=== PATIENT | male | born 1955 | race Caucasian/White ===

== ENCOUNTER 2016-09-07 14:06 | Inpatient (IN) ==
[2016-09-07] MEDS ORDERED: Aspirin 81 MG TAB.CHEW PO ONE (14:20)
[2016-09-07] MEDS ORDERED: 0.9 % Sodium Chloride 500 ML IVC ONE (14:20)
--- NOTE | 2016-09-07 14:27 | Emergency Department Note ---
Disposition Clinical Impression: Community acquired bacterial pneumonia, Acute alcoholic intoxication with delirium Altered mental status Qualifiers: Altered mental status type: delirium Qualified Code(s): R41.0 - Disorientation , unspecified Disposition: Admitted As Inpatient Forms: ED Satisfaction Letter Chest Pain HPI - General Chief Complaint: ED Chest Pain Stated Complaint: Chest Pain, ADAM Time Seen by Provider: 09/07/16 14:10 Source: patient Limitations: no limitations Vital Signs Reviewed: Yes Nursing Notes Reviewed: Yes - History of Present Illness HPI Narrative: Patient is a difficult historian he comes today with his coworkers for chest pain dizziness and confusion. His coworker [place] that [place] is here [place] working his complaint of chest pain today cough and altered mental status. He does have a known history of alcoholism and states he is drinking up to 12 beers today. The patient does not give direct answers states he is okay wants to go home and is obviously confused. Pt complaint: chest pain Severity scale (1-10): 6 - Related Data Home Medications Medication Instructions Recorded Confirmed No Known Home Drugs 09/07/16 09/07/16 Allergies Allergy/AdvReac Type Severity Reaction Status Date / Time Unable to Assess Allergy Unverified 09/07/16 15:33 All systems ED: reviewed and negative except as stated. Constitutional: Reports: weakness Cardiovascular: Reports: chest pain Respiratory: Reports: cough Chest Pain PMH - Past Medical History Medical history: Reports: no medical history Psychiatric history: Reports: no psych history - Social History Smoking Status: Current every day smoker Alcohol use: Reports: heavy Drug use: Reports: none Physical Exam - General Limitations: altered mental status General appearance: appears intoxicated - Head Head exam: atraumatic, normocephalic, normal inspection - Eye Eye exam: Present: normal appearance, PERRL, EOMI - ENT ENT exam: normal exam, normal oropharynx, mucous membranes moist - Neck Neck exam: Present: normal inspection, full ROM, trachea midline - Chest Chest inspection: Present: normal inspection, symmetric chest wall rise - Respiratory Respiratory exam: Present: wheezes (rhonchi). Absent: respiratory distress - Cardiovascular Cardiovascular exam: Present: tachycardia - Abdominal Exam Abdominal exam: Present: soft, Non-Tender. Absent: tenderness, distention, guarding, rebound, rigidity - Expanded Lower Extremity Exam Neurovascular/Tendon exam: Absent: motor deficit, sensory deficit, tendon deficit - Back Exam Back exam: Present: normal inspection, full ROM. Absent: tenderness - Neurological Exam Neurological exam: Present: alert. Absent: normal gait (ataxic) - Psychiatric Psychiatric exam: Present: other (confused) - Skin Skin exam: Present: warm, dry, intact, normal color Course Vital Signs Temperature 99.7 F H 09/07/16 14:16 Pulse Rate 132 09/07/16 14:16 Respiratory Rate 22 09/07/16 14:16 Blood Pressure 193/115 09/07/16 14:16 O2 Sat by Pulse Oximetry 89 09/07/16 14:16 Temperature 99.7 F H 09/07/16 14:16 Pulse Rate 137 09/07/16 15:31 Respiratory Rate 20 09/07/16 15:31 Blood Pressure 157/98 09/07/16 15:31 O2 Sat by Pulse Oximetry 98 09/07/16 15:31 Oxygen Delivery Oxygen Delivery Nasal Cannula Chest Pain - Differential Diagnosis Likely: stable angina, unstable angina pectoris, atypical chest pain, st elevation myocardial infraction, chest pain - Medical Records Medical records reviewed: Yes I reviewed the patient's medical records. - Lab Data Lab results reviewed: Yes I reviewed the patient's lab results. Result diagrams: 09/07/16 14:29 09/07/16 14:29 Lab Results 09/07/16 09/07/16 09/07/16 Range/Units 14:29 14:29 14:29 WBC 12.9 H (4.3-11.1) K/mcL RBC 5.41 (4.19-5.50) M/mcL Hgb 16.8 (12.9-16.9) g/dL Hct 48.4 (37.5-50.1) % MCV 89.5 (83.0-100.0) fL MCH 31.1 (28.0-33.3) pg MCHC 34.7 (31.6-35.5) g/dL RDW 12.9 (11.5-14.5) % Plt Count 226 (140-400) K/mcL MPV 9.5 (9.4-12.4) fL Immature Gran % 0.3 (0-4) % Seg Neutrophils % 80.1 % Lymphocytes % 11.6 % Monocytes % 6.4 % Eosinophils % 0.9 % Basophils % 0.7 % Neutrophils # 10.3 H (1.6-8.9) K/mcL Lymphocytes # 1.5 (0.6-4.6) K/mcL Monocytes # 0.8 (0.0-1.3) K/mcL Eosinophils # 0.1 (0.0-0.6) K/mcL Basophils # 0.1 (0.0-0.2) K/mcL PT 11.4 (9.4-12.1) Seconds INR 1.1 APTT 33.9 (26.0-36.0) Seconds D-Dimer 534 H (0-500) ng/mLFEU Sodium (136-145) mEq/L Potassium (3.5-4.5) mEq/L Chloride (98-109) mEq/L Carbon Dioxide (19-29) mEq/L BUN (8-26) mg/dL Creatinine (0.72-1.25) mg/dL Est GFR ( Amer) (> 60) Est GFR (Non-Af Amer) (> 60) BUN/Creatinine Ratio (6-26) Glucose (70-99) mg/dL Calculated Osmolality (280-300) Lactic Acid (0.5-2.2) mmol/L Calcium (8.6-10.8) mg/dL Magnesium (1.6-2.6) mg/dL Total Bilirubin (0.2-1.2) mg/dL Direct Bilirubin (0.0-0.5) mg/dL Indirect Bilirubin (0.0-1.2) mg/dL AST (5-34) Units/L ALT (0-55) Units/L Alkaline Phosphatase (38-126) Units/L Troponin I (0-0.03) ng/mL B-Natriuretic Peptide 24 (0-100) pg/mL Serum Total Protein (6.0-8.3) g/dL Albumin (3.5-5.0) g/dL Globulin (2.4-3.5) g/dL Albumin/Globulin Ratio (1.1-2.2) Urine Color (Yellow) Urine Clarity (Clear) Urine pH (5.0-8.0) pH Units Ur Specific [place] (1.010-1.025) Urine Protein (Neg-Trace) mg/dL Urine Glucose (UA) (Normal) mg/dL Urine Ketones (Negative) mg/dL Urine Blood (Negative) Urine Nitrite (Negative) Urine Bilirubin (Negative) Urine Urobilinogen (Normal) mg/dL Ur Leukocyte Esterase (Negative) Ur Culture Indicated? (NO) Urine Opiates Screen (Yvmxwg=692) ng/mL Ur Barbiturates Screen (Mwkonm=152) ng/mL Ur Phencyclidine Scrn (Cutoff=25) ng/mL Ur Amphetamines Screen (Vdzwmg=6985) ng/mL U Benzodiazepines Scrn (Olqdgw=755) ng/mL Urine Cocaine Screen (Cutoff= 300) ng/mL U Marijuana (THC) Screen (Cutoff = 50) ng/mL Ethyl Alcohol (0-10) mg/dL 09/07/16 09/07/16 09/07/16 Range/Units 14:29 14:29 14:56 WBC (4.3-11.1) K/mcL RBC (4.19-5.50) M/mcL Hgb (12.9-16.9) g/dL Hct (37.5-50.1) % MCV (83.0-100.0) fL MCH (28.0-33.3) pg MCHC (31.6-35.5) g/dL RDW (11.5-14.5) % Plt Count (140-400) K/mcL MPV (9.4-12.4) fL Immature Gran % (0-4) % Seg Neutrophils % % Lymphocytes % % Monocytes % % Eosinophils % % Basophils % % Neutrophils # (1.6-8.9) K/mcL Lymphocytes # (0.6-4.6) K/mcL Monocytes # (0.0-1.3) K/mcL Eosinophils # (0.0-0.6) K/mcL Basophils # (0.0-0.2) K/mcL PT (9.4-12.1) Seconds INR APTT (26.0-36.0) Seconds D-Dimer (0-500) ng/mLFEU Sodium 141 (136-145) mEq/L Potassium 4.0 (3.5-4.5) mEq/L Chloride 102 (98-109) mEq/L Carbon Dioxide 28 (19-29) mEq/L BUN 7 L (8-26) mg/dL Creatinine 0.71 L (0.72-1.25) mg/dL Est GFR ( Amer) > 60 (> 60) Est GFR (Non-Af Amer) > 60 (> 60) BUN/Creatinine Ratio 10 (6-26) Glucose 107 H (70-99) mg/dL Calculated Osmolality 290 (280-300) Lactic Acid (0.5-2.2) mmol/L Calcium 8.9 (8.6-10.8) mg/dL Magnesium 1.9 (1.6-2.6) mg/dL Total Bilirubin 0.4 (0.2-1.2) mg/dL Direct Bilirubin 0.2 (0.0-0.5) mg/dL Indirect Bilirubin 0.2 (0.0-1.2) mg/dL AST 94 H (5-34) Units/L ALT 138 H (0-55) Units/L Alkaline Phosphatase 77 (38-126) Units/L Troponin I 0.00 (0-0.03) ng/mL B-Natriuretic Peptide (0-100) pg/mL Serum Total Protein 9.4 H (6.0-8.3) g/dL Albumin 4.0 (3.5-5.0) g/dL Globulin 5.4 H (2.4-3.5) g/dL Albumin/Globulin Ratio 0.7 L (1.1-2.2) Urine Color (Yellow) Urine Clarity (Clear) Urine pH (5.0-8.0) pH Units Ur Specific [place] (1.010-1.025) Urine Protein (Neg-Trace) mg/dL Urine Glucose (UA) (Normal) mg/dL Urine Ketones (Negative) mg/dL Urine Blood (Negative) Urine Nitrite (Negative) Urine Bilirubin (Negative) Urine Urobilinogen (Normal) mg/dL Ur Leukocyte Esterase (Negative) Ur Culture Indicated? (NO) Urine Opiates Screen (Rffwfh=974) ng/mL Ur Barbiturates Screen (Wytxch=529) ng/mL Ur Phencyclidine Scrn (Cutoff=25) ng/mL Ur Amphetamines Screen (Jtgyjy=4712) ng/mL U Benzodiazepines Scrn (Rxrpmu=083) ng/mL Urine Cocaine Screen (Cutoff= 300) ng/mL U Marijuana (THC) Screen (Cutoff = 50) ng/mL Ethyl Alcohol (0-10) mg/dL 04/28/17 04/28/17 04/28/17 Range/Units 14:56 14:56 15:10 WBC (4.3-11.1) K/mcL RBC (4.19-5.50) M/mcL Hgb (12.9-16.9) g/dL Hct (37.5-50.1) % MCV (83.0-100.0) fL MCH (28.0-33.3) pg MCHC (31.6-35.5) g/dL RDW (11.5-14.5) % Plt Count (140-400) K/mcL MPV (9.4-12.4) fL Immature Gran % (0-4) % Seg Neutrophils % % Lymphocytes % % Monocytes % % Eosinophils % % Basophils % % Neutrophils # (1.6-8.9) K/mcL Lymphocytes # (0.6-4.6) K/mcL Monocytes # (0.0-1.3) K/mcL Eosinophils # (0.0-0.6) K/mcL Basophils # (0.0-0.2) K/mcL PT (9.4-12.1) Seconds INR APTT (26.0-36.0) Seconds D-Dimer (0-500) ng/mLFEU Sodium (136-145) mEq/L Potassium (3.5-4.5) mEq/L Chloride (98-109) mEq/L Carbon Dioxide (19-29) mEq/L BUN (8-26) mg/dL Creatinine (0.72-1.25) mg/dL Est GFR ( Amer) (> 60) Est GFR (Non-Af Amer) (> 60) BUN/Creatinine Ratio (6-26) Glucose (70-99) mg/dL Calculated Osmolality (280-300) Lactic Acid 2.2 (0.5-2.2) mmol/L Calcium (8.6-10.8) mg/dL Magnesium (1.6-2.6) mg/dL Total Bilirubin (0.2-1.2) mg/dL Direct Bilirubin (0.0-0.5) mg/dL Indirect Bilirubin (0.0-1.2) mg/dL AST (5-34) Units/L ALT (0-55) Units/L Alkaline Phosphatase (38-126) Units/L Troponin I (0-0.03) ng/mL B-Natriuretic Peptide (0-100) pg/mL Serum Total Protein (6.0-8.3) g/dL Albumin (3.5-5.0) g/dL Globulin (2.4-3.5) g/dL Albumin/Globulin Ratio (1.1-2.2) Urine Color Yellow (Yellow) Urine Clarity Clear (Clear) Urine pH 6.0 (5.0-8.0) pH Units Ur Specific [place] 1.012 (1.010-1.025) Urine Protein Negative (Neg-Trace) mg/dL Urine Glucose (UA) Normal (Normal) mg/dL Urine Ketones Negative (Negative) mg/dL Urine Blood Negative (Negative) Urine Nitrite Negative (Negative) Urine Bilirubin Negative (Negative) Urine Urobilinogen Normal (Normal) mg/dL Ur Leukocyte Esterase Negative (Negative) Ur Culture Indicated? NO (NO) Urine Opiates Screen (Jtgukn=935) ng/mL Ur Barbiturates Screen (Yopoly=960) ng/mL Ur Phencyclidine Scrn (Cutoff=25) ng/mL Ur Amphetamines Screen (Pdaldq=4439) ng/mL U Benzodiazepines Scrn (Ldiujb=868) ng/mL Urine Cocaine Screen (Cutoff= 300) ng/mL U Marijuana (THC) Screen (Cutoff = 50) ng/mL Ethyl Alcohol 257 H (0-10) mg/dL 09/07/16 Range/Units 15:10 WBC (4.3-11.1) K/mcL RBC (4.19-5.50) M/mcL Hgb (12.9-16.9) g/dL Hct (37.5-50.1) % MCV (83.0-100.0) fL MCH (28.0-33.3) pg MCHC (31.6-35.5) g/dL RDW (11.5-14.5) % Plt Count (140-400) K/mcL MPV (9.4-12.4) fL Immature Gran % (0-4) % Seg Neutrophils % % Lymphocytes % % Monocytes % % Eosinophils % % Basophils % % Neutrophils # (1.6-8.9) K/mcL Lymphocytes # (0.6-4.6) K/mcL Monocytes # (0.0-1.3) K/mcL Eosinophils # (0.0-0.6) K/mcL Basophils # (0.0-0.2) K/mcL PT (9.4-12.1) Seconds INR APTT (26.0-36.0) Seconds D-Dimer (0-500) ng/mLFEU Sodium (136-145) mEq/L Potassium (3.5-4.5) mEq/L Chloride (98-109) mEq/L Carbon Dioxide (19-29) mEq/L BUN (8-26) mg/dL Creatinine (0.72-1.25) mg/dL Est GFR ( Amer) (> 60) Est GFR (Non-Af Amer) (> 60) BUN/Creatinine Ratio (6-26) Glucose (70-99) mg/dL Calculated Osmolality (280-300) Lactic Acid (0.5-2.2) mmol/L Calcium (8.6-10.8) mg/dL Magnesium (1.6-2.6) mg/dL Total Bilirubin (0.2-1.2) mg/dL Direct Bilirubin (0.0-0.5) mg/dL Indirect Bilirubin (0.0-1.2) mg/dL AST (5-34) Units/L ALT (0-55) Units/L Alkaline Phosphatase (38-126) Units/L Troponin I (0-0.03) ng/mL B-Natriuretic Peptide (0-100) pg/mL Serum Total Protein (6.0-8.3) g/dL Albumin (3.5-5.0) g/dL Globulin (2.4-3.5) g/dL Albumin/Globulin Ratio (1.1-2.2) Urine Color (Yellow) Urine Clarity (Clear) Urine pH (5.0-8.0) pH Units Ur Specific [place] (1.010-1.025) Urine Protein (Neg-Trace) mg/dL Urine Glucose (UA) (Normal) mg/dL Urine Ketones (Negative) mg/dL Urine Blood (Negative) Urine Nitrite (Negative) Urine Bilirubin (Negative) Urine Urobilinogen (Normal) mg/dL Ur Leukocyte Esterase (Negative) Ur Culture Indicated? (NO) Urine Opiates Screen Negative (Yqoiuz=473) ng/mL Ur Barbiturates Screen Negative (Tttmgb=087) ng/mL Ur Phencyclidine Scrn Negative (Cutoff=25) ng/mL Ur Amphetamines Screen Negative (Pcpbca=3122) ng/mL U Benzodiazepines Scrn Negative (Alqqga=040) ng/mL Urine Cocaine Screen Negative (Cutoff= 300) ng/mL U Marijuana (THC) Screen Negative (Cutoff = 50) ng/mL Ethyl Alcohol (0-10) mg/dL - Radiology Data Radiology results reviewed: Yes I reviewed the patient's radiology results. - EKG Data EKG attestation: Yes I reviewed and interpreted this EKG. EKG shows normal: sinus rhythm Rate: tachycardia (139) Critical Care Time Critical Care Time: Yes Total Critical Care Time: 40 Attestation: Critical care performed: Time is exclusive of separately billable procedures. Time includes: direct patient care, patient reassessment, coordination of patient care, interpretation of data (laboratory data, radiology data, and respiratory data), review of patient's medical records, medical consultation and documentation of patient care. Procedures included in critical care time: Procedures excluded from critical care time:
[2016-09-07] MEDS ORDERED: *HR* LORazepam 2 MG/ML VIAL IVP ONE (14:48)
[2016-09-07 14:51] LABS: Basophils # 0.1 K/mcL (0.0-0.2); Basophils % 0.7 %; Eosinophils # 0.1 K/mcL (0.0-0.6); Eosinophils % 0.9 %; Hematocrit 48.4 % (37.5-50.1); Hemoglobin 16.8 g/dL (12.9-16.9); Immature Granulocytes % 0.3 % (0-4); Lymphocytes # 1.5 K/mcL (0.6-4.6); Lymphocytes % 11.6 %; Mean Corpuscular HGB Conc 34.7 g/dL (31.6-35.5); Mean Corpuscular Hemoglobin 31.1 pg (28.0-33.3); Mean Corpuscular Volume 89.5 fL (83.0-100.0); Mean Platelet Volume 9.5 fL (9.4-12.4); Monocytes # 0.8 K/mcL (0.0-1.3); Monocytes % 6.4 %; Neutrophils # 10.3 K/mcL (1.6-8.9); Platelet Count 226 K/mcL (140-400); Red Blood Count 5.41 M/mcL (4.19-5.50); Red Cell Distribution Width 12.9 % (11.5-14.5); Segmented Neutrophils % 80.1 %
[2016-09-07 14:58] LABS: INR 1.1; Prothrombin Time 11.4 Seconds (9.4-12.1)
[2016-09-07 15:00] LABS: BUN/Creatinine Ratio 10 (6-26); Blood Urea Nitrogen 7 mg/dL (8-26); Calcium 8.9 mg/dL (8.6-10.8); Carbon Dioxide 28 mEq/L (19-29); Chloride 102 mEq/L (98-109); Glucose 107 mg/dL (70-99); Osmolality,Calculated 290 (280-300); Sodium 141 mEq/L (136-145); eGFR For African Americans > 60 (> 60); eGFR For Non-African Americans > 60 (> 60)
[2016-09-07 15:01] LABS: Activated Partial Thrombo Time 33.9 Seconds (26.0-36.0)
[2016-09-07 15:19] LABS: Albumin/Globulin Ratio 0.7 (1.1-2.2); Bilirubin,Direct 0.2 mg/dL (0.0-0.5); Bilirubin,Indirect 0.2 mg/dL (0.0-1.2); Bilirubin,Total 0.4 mg/dL (0.2-1.2); Globulin 5.4 g/dL (2.4-3.5); Magnesium 1.9 mg/dL (1.6-2.6); Total Protein 9.4 g/dL (6.0-8.3)
[2016-09-07 15:21] LABS: Bilirubin,Urine Negative (Negative); Blood,Urine Negative (Negative); Clarity,Urine Clear (Clear); Color,Urine Yellow (Yellow); Glucose,Urine (UA) Normal (Normal); Ketones,Urine Negative (Negative); Leukocyte Esterase,Urine Negative (Negative); Nitrite,Urine Negative (Negative); Protein,Urine Negative (Neg-Trace); Specific Gravity,Urine 1.012 (1.010-1.025); Urobilinogen,Urine Normal (Normal)
[2016-09-07 15:25] LABS: Amphetamine Screen,Urine Negative ng/mL (Cutoff=1000); Barbiturate Screen,Urine Negative ng/mL (Cutoff=200); Benzodiazepines Screen,Urine Negative ng/mL (Cutoff=200); Cannabinoid Screen,Urine Negative ng/mL (Cutoff = 50); Cocaine Screen,Urine Negative ng/mL (Cutoff= 300); Opiate Screen,Urine Negative ng/mL (Cutoff=300); Phencyclidine Screen,Urine Negative ng/mL (Cutoff=25)
[2016-09-07] MEDS ORDERED: Levofloxacin 750 MG/150 ML 750 MG/150 ML BAG IVPB ONE (15:27)
[2016-09-07] MEDS ORDERED: Thiamine (B-1) 100 MG in D5% in Water 50 ML IVPB ONE (15:29)
[2016-09-07] MEDS ORDERED: Folic Acid 1 MG in D5% in Water 50 ML IVPB ONE (15:29)
[2016-09-07] MEDS ORDERED: 0.9 % Sodium Chloride 1,000 ML IVC ONE (15:31)
[2016-09-07] MEDS ORDERED: *HR* Promethazine 25 MG/ML VIAL IVP PRN ×2 (16:12→16:28)
[2016-09-07] MEDS ORDERED: *HR* LORazepam 2 MG/ML VIAL IVP PRN ×3 (16:12)
[2016-09-07] MEDS ORDERED: Naloxone 0.4 MG/ML INJ IVP PRN (16:12)
--- NOTE | 2016-09-07 16:24 | Internal Med History&Physical ---
<Missy Crane M - Last Filed: 09/07/16 17:21> Date of Encounter: 09/07/16 Time of Encounter: 16:22 Assessment and Plan (1) Sepsis Current visit: Yes Status: Acute Patient with pneumonia, elevated WBC count of 12.9, tachypnea and tachycardia, meeting sepsis criteria. Lactate normal at 2.2, will get recheck IV fluid bolus in ER. IV fluids 0.9NS at 150mL/hr blood cultures drawn and sent. sputum cultures ordered patient initiated on Levaquin, will add zosyn given suspicion for aspiration pneumonia. continuous color television console monitor. Qualifiers: Sepsis type: sepsis due to unspecified organism Qualified Code(s): A41.9 - Sepsis, unspecified organism (2) Aspiration pneumonia Current visit: Yes Status: Suspected Patient presents with confusion, chest pain, alcohol intoxication and coughing. He is tachycardic and satting 89% on room air. CXR shows patchy consolidation within the right mid lung and lower lobe. Given patient's alcoholism, suspect aspiration pneumonia. IV fluids 0.9NS at 150 Levaquin and zosyn IVPB Blood cultures and sputum cultures ordered. titrate oxygen to maintain O2 sat > 92% duoneb treatments QID Qualifiers: Aspiration pneumonia type: due to vomit Laterality: right Lung location: middle lobe of lung Qualified Code(s): J69.0 - Pneumonitis due to inhalation of food and vomit (3) Acute alcoholic intoxication with delirium Current visit: Yes Status: Acute Patient with ethyl alcohol level of 257. He is reportedly an alcoholic and drinks at least 10 beers per day. CIWA protocol IV fluids 0.9NS at 150, plus B-vitamin complex IVPB SWK consulted. (4) Tachycardia Current visit: Yes Status: Acute Heart rate in 130s-140s. EKG shows sinus tachycardia. Patient intoxicated and with pneumonia. Tachycardia likely secondary to a combination of dehydration and sepsis. 1L bolus in ED. IV fluids 0.9NS at 150mL/hr. Continuous color television console monitor. (5) Chest pain Current visit: Yes Status: Acute Patient was complaining of chest pain on arrival. Initial troponin negative. EKG showed sinus tachycardia. Chest pain likely secondary to pneumonia. continuous color television console monitor. Will check troponin again in the morning. Qualifiers: Chest pain type: unspecified Qualified Code(s): R07.9 - Chest pain, unspecified (6) Smoker Current visit: Yes Status: Acute smoking cessation education and nicotine patch ordered. (7) DVT prophylaxis Current visit: Yes Status: Acute anti-embolic stockings Lovenox 40mg SQ daily Internal Medicine - H&P: HPI Chief complaint: cough, chest pain Admitted From: Emergency Dept Plans for Post Hospital Care: Home History of present illness: Mr. Marx is a 60 year old male with unknown health history was brought to the emergency department today by his coworkers for coughing, confusion, and stumbling. On arrival patient was complaining of chest pain and was coughing. He was confused, and found to have alcohol intoxication. Patient was agitated and confused and was given Ativan in the emergency department. As such I was unable to get a review of systems, as patient was somnolent on exam and not answering questions. He was tachycardic, and tachypnic, and satting 89% on room air. Evaluation in the emergency department revealed elevated white blood cell count of 12.9. Alcohol of greater than 200. BNP was normal, troponin was negative at 0.0, ALT and AST were both elevated. Lactic acid was normal. Chest x-ray showed mild multifocal right-sided pneumonia. Patient is reportedly an alcoholic drinking at least 10 beers per day. On exam, patient was somnolent, not oriented. Heart tachycardic but regular rhythm. Lungs had rhonchi on the right. Past Med Surg Social Fam HX - Past Medical History Source: unable to obtain (Patient confused and somnolent, no old records available.) Medical history: no medical history Psychiatric history: no psych history - Social History Smoking Status: Current every day smoker Smokeless Tobacco Status: No Alcohol use: heavy, recent Drug use: none Internal Medicine - H&P: Meds No Known Home Drugs 09/07/16 [History] Allergies Unable to Assess Allergy (Unverified 09/07/16 15:50) patient intoxicated .... family/friend at [facility] states NKA ROS unobtainable: due to mental status All Systems PM: A 10-system review of systems was performed and is negative for pertinent findings except as documented above in the HPI. - Constitutional Vitals: Temp Pulse Resp BP Pulse Ox 99.7 F H 138 20 146/94 99 09/07/16 14:16 09/07/16 15:58 09/07/16 16:16 09/07/16 16:16 09/07/16 15:58 General appearance: Present: A&O X 1, disheveled - Head Head exam: Present: atraumatic, normocephalic - Eye Eye exam: Present: PERRL, conjuntiva pink, sclera anicteric Pupils: Present: PERRL - Neck Neck exam general surgery: Present: supple, trachea midline. Absent: lymphadenopathy - Respiratory Respiratory exam: Present: rhonchi (right sided). Absent: accessory muscle use , rales, wheezes - Cardiovascular Cardiovascular exam: Present: +S1, +S2, tachycardia. Absent: diastolic murmur, gallop, rubs, systolic murmur - GI/Abdominal GI/Abdominal exam: Present: normal bowel sounds, soft, no peritoneal signs. Absent: distended, tenderness - Extremities Exam Extremities exam: Present: warm, radial pulses palpable and symetrical. Absent : calf tenderness, cyanotic, pedal edema - Neurological Exam Neurological exam: Present: no focal deficits. Absent: facial droop - Skin Skin exam: Present: dry, intact Internal Med - H&P Results - Labs CBC & Chem 7: 09/07/16 14:29 09/07/16 14:29 Labs: All Lab Results (24 Hours) 09/07/16 09/07/16 09/07/16 Range/Units 14:29 14:29 14:29 WBC 12.9 H (4.3-11.1) K/mcL RBC 5.41 (4.19-5.50) M/mcL Hgb 16.8 (12.9-16.9) g/dL Hct 48.4 (37.5-50.1) % MCV 89.5 (83.0-100.0) fL MCH 31.1 (28.0-33.3) pg MCHC 34.7 (31.6-35.5) g/dL RDW 12.9 (11.5-14.5) % Plt Count 226 (140-400) K/mcL MPV 9.5 (9.4-12.4) fL Immature Gran % 0.3 (0-4) % Seg Neutrophils % 80.1 % Lymphocytes % 11.6 % Monocytes % 6.4 % Eosinophils % 0.9 % Basophils % 0.7 % Neutrophils # 10.3 H (1.6-8.9) K/mcL Lymphocytes # 1.5 (0.6-4.6) K/mcL Monocytes # 0.8 (0.0-1.3) K/mcL Eosinophils # 0.1 (0.0-0.6) K/mcL Basophils # 0.1 (0.0-0.2) K/mcL PT 11.4 (9.4-12.1) Seconds INR 1.1 APTT 33.9 (26.0-36.0) Seconds D-Dimer 534 H (0-500) ng/mLFEU Sodium (136-145) mEq/L Potassium (3.5-4.5) mEq/L Chloride (98-109) mEq/L Carbon Dioxide (19-29) mEq/L BUN (8-26) mg/dL Creatinine (0.72-1.25) mg/dL Est GFR ( Amer) (> 60) Est GFR (Non-Af Amer) (> 60) BUN/Creatinine Ratio (6-26) Glucose (70-99) mg/dL Calculated Osmolality (280-300) Lactic Acid (0.5-2.2) mmol/L Calcium (8.6-10.8) mg/dL Magnesium (1.6-2.6) mg/dL Total Bilirubin (0.2-1.2) mg/dL Direct Bilirubin (0.0-0.5) mg/dL Indirect Bilirubin (0.0-1.2) mg/dL AST (5-34) Units/L ALT (0-55) Units/L Alkaline Phosphatase (38-126) Units/L Troponin I (0-0.03) ng/mL B-Natriuretic Peptide 24 (0-100) pg/mL Serum Total Protein (6.0-8.3) g/dL Albumin (3.5-5.0) g/dL Globulin (2.4-3.5) g/dL Albumin/Globulin Ratio (1.1-2.2) Urine Color (Yellow) Urine Clarity (Clear) Urine pH (5.0-8.0) pH Units Ur Specific Carmi (1.010-1.025) Urine Protein (Neg-Trace) mg/dL Urine Glucose (UA) (Normal) mg/dL Urine Ketones (Negative) mg/dL Urine Blood (Negative) Urine Nitrite (Negative) Urine Bilirubin (Negative) Urine Urobilinogen (Normal) mg/dL Ur Leukocyte Esterase (Negative) Ur Culture Indicated? (NO) Urine Opiates Screen (Funpib=470) ng/mL Ur Barbiturates Screen (Rxacig=298) ng/mL Ur Phencyclidine Scrn (Cutoff=25) ng/mL Ur Amphetamines Screen (Xieisi=3862) ng/mL U Benzodiazepines Scrn (Xywvmm=738) ng/mL Urine Cocaine Screen (Cutoff= 300) ng/mL U Marijuana (THC) Screen (Cutoff = 50) ng/mL Ethyl Alcohol (0-10) mg/dL 09/07/16 09/07/16 09/07/16 Range/Units 14:29 14:29 14:56 WBC (4.3-11.1) K/mcL RBC (4.19-5.50) M/mcL Hgb (12.9-16.9) g/dL Hct (37.5-50.1) % MCV (83.0-100.0) fL MCH (28.0-33.3) pg MCHC (31.6-35.5) g/dL RDW (11.5-14.5) % Plt Count (140-400) K/mcL MPV (9.4-12.4) fL Immature Gran % (0-4) % Seg Neutrophils % % Lymphocytes % % Monocytes % % Eosinophils % % Basophils % % Neutrophils # (1.6-8.9) K/mcL Lymphocytes # (0.6-4.6) K/mcL Monocytes # (0.0-1.3) K/mcL Eosinophils # (0.0-0.6) K/mcL Basophils # (0.0-0.2) K/mcL PT (9.4-12.1) Seconds INR APTT (26.0-36.0) Seconds D-Dimer (0-500) ng/mLFEU Sodium 141 (136-145) mEq/L Potassium 4.0 (3.5-4.5) mEq/L Chloride 102 (98-109) mEq/L Carbon Dioxide 28 (19-29) mEq/L BUN 7 L (8-26) mg/dL Creatinine 0.71 L (0.72-1.25) mg/dL Est GFR ( Amer) > 60 (> 60) Est GFR (Non-Af Amer) > 60 (> 60) BUN/Creatinine Ratio 10 (6-26) Glucose 107 H (70-99) mg/dL Calculated Osmolality 290 (280-300) Lactic Acid (0.5-2.2) mmol/L Calcium 8.9 (8.6-10.8) mg/dL Magnesium 1.9 (1.6-2.6) mg/dL Total Bilirubin 0.4 (0.2-1.2) mg/dL Direct Bilirubin 0.2 (0.0-0.5) mg/dL Indirect Bilirubin 0.2 (0.0-1.2) mg/dL AST 94 H (5-34) Units/L ALT 138 H (0-55) Units/L Alkaline Phosphatase 77 (38-126) Units/L Troponin I 0.00 (0-0.03) ng/mL B-Natriuretic Peptide (0-100) pg/mL Serum Total Protein 9.4 H (6.0-8.3) g/dL Albumin 4.0 (3.5-5.0) g/dL Globulin 5.4 H (2.4-3.5) g/dL Albumin/Globulin Ratio 0.7 L (1.1-2.2) Urine Color (Yellow) Urine Clarity (Clear) Urine pH (5.0-8.0) pH Units Ur Specific Carmi (1.010-1.025) Urine Protein (Neg-Trace) mg/dL Urine Glucose (UA) (Normal) mg/dL Urine Ketones (Negative) mg/dL Urine Blood (Negative) Urine Nitrite (Negative) Urine Bilirubin (Negative) Urine Urobilinogen (Normal) mg/dL Ur Leukocyte Esterase (Negative) Ur Culture Indicated? (NO) Urine Opiates Screen (Njeqow=781) ng/mL Ur Barbiturates Screen (Abbdmf=910) ng/mL Ur Phencyclidine Scrn (Cutoff=25) ng/mL Ur Amphetamines Screen (Euphcg=8270) ng/mL U Benzodiazepines Scrn (Vfagvp=778) ng/mL Urine Cocaine Screen (Cutoff= 300) ng/mL U Marijuana (THC) Screen (Cutoff = 50) ng/mL Ethyl Alcohol (0-10) mg/dL 09/07/16 09/07/16 09/07/16 Range/Units 14:56 14:56 15:10 WBC (4.3-11.1) K/mcL RBC (4.19-5.50) M/mcL Hgb (12.9-16.9) g/dL Hct (37.5-50.1) % MCV (83.0-100.0) fL MCH (28.0-33.3) pg MCHC (31.6-35.5) g/dL RDW (11.5-14.5) % Plt Count (140-400) K/mcL MPV (9.4-12.4) fL Immature Gran % (0-4) % Seg Neutrophils % % Lymphocytes % % Monocytes % % Eosinophils % % Basophils % % Neutrophils # (1.6-8.9) K/mcL Lymphocytes # (0.6-4.6) K/mcL Monocytes # (0.0-1.3) K/mcL Eosinophils # (0.0-0.6) K/mcL Basophils # (0.0-0.2) K/mcL PT (9.4-12.1) Seconds INR APTT (26.0-36.0) Seconds D-Dimer (0-500) ng/mLFEU Sodium (136-145) mEq/L Potassium (3.5-4.5) mEq/L Chloride (98-109) mEq/L Carbon Dioxide (19-29) mEq/L BUN (8-26) mg/dL Creatinine (0.72-1.25) mg/dL Est GFR ( Amer) (> 60) Est GFR (Non-Af Amer) (> 60) BUN/Creatinine Ratio (6-26) Glucose (70-99) mg/dL Calculated Osmolality (280-300) Lactic Acid 2.2 (0.5-2.2) mmol/L Calcium (8.6-10.8) mg/dL Magnesium (1.6-2.6) mg/dL Total Bilirubin (0.2-1.2) mg/dL Direct Bilirubin (0.0-0.5) mg/dL Indirect Bilirubin (0.0-1.2) mg/dL AST (5-34) Units/L ALT (0-55) Units/L Alkaline Phosphatase (38-126) Units/L Troponin I (0-0.03) ng/mL B-Natriuretic Peptide (0-100) pg/mL Serum Total Protein (6.0-8.3) g/dL Albumin (3.5-5.0) g/dL Globulin (2.4-3.5) g/dL Albumin/Globulin Ratio (1.1-2.2) Urine Color Yellow (Yellow) Urine Clarity Clear (Clear) Urine pH 6.0 (5.0-8.0) pH Units Ur Specific Carmi 1.012 (1.010-1.025) Urine Protein Negative (Neg-Trace) mg/dL Urine Glucose (UA) Normal (Normal) mg/dL Urine Ketones Negative (Negative) mg/dL Urine Blood Negative (Negative) Urine Nitrite Negative (Negative) Urine Bilirubin Negative (Negative) Urine Urobilinogen Normal (Normal) mg/dL Ur Leukocyte Esterase Negative (Negative) Ur Culture Indicated? NO (NO) Urine Opiates Screen (Odjvce=474) ng/mL Ur Barbiturates Screen (Ekhucb=793) ng/mL Ur Phencyclidine Scrn (Cutoff=25) ng/mL Ur Amphetamines Screen (Awrcmw=6941) ng/mL U Benzodiazepines Scrn (Rqrecr=545) ng/mL Urine Cocaine Screen (Cutoff= 300) ng/mL U Marijuana (THC) Screen (Cutoff = 50) ng/mL Ethyl Alcohol 257 H (0-10) mg/dL 09/07/16 Range/Units 15:10 WBC (4.3-11.1) K/mcL RBC (4.19-5.50) M/mcL Hgb (12.9-16.9) g/dL Hct (37.5-50.1) % MCV (83.0-100.0) fL MCH (28.0-33.3) pg MCHC (31.6-35.5) g/dL RDW (11.5-14.5) % Plt Count (140-400) K/mcL MPV (9.4-12.4) fL Immature Gran % (0-4) % Seg Neutrophils % % Lymphocytes % % Monocytes % % Eosinophils % % Basophils % % Neutrophils # (1.6-8.9) K/mcL Lymphocytes # (0.6-4.6) K/mcL Monocytes # (0.0-1.3) K/mcL Eosinophils # (0.0-0.6) K/mcL Basophils # (0.0-0.2) K/mcL PT (9.4-12.1) Seconds INR APTT (26.0-36.0) Seconds D-Dimer (0-500) ng/mLFEU Sodium (136-145) mEq/L Potassium (3.5-4.5) mEq/L Chloride (98-109) mEq/L Carbon Dioxide (19-29) mEq/L BUN (8-26) mg/dL Creatinine (0.72-1.25) mg/dL Est GFR ( Amer) (> 60) Est GFR (Non-Af Amer) (> 60) BUN/Creatinine Ratio (6-26) Glucose (70-99) mg/dL Calculated Osmolality (280-300) Lactic Acid (0.5-2.2) mmol/L Calcium (8.6-10.8) mg/dL Magnesium (1.6-2.6) mg/dL Total Bilirubin (0.2-1.2) mg/dL Direct Bilirubin (0.0-0.5) mg/dL Indirect Bilirubin (0.0-1.2) mg/dL AST (5-34) Units/L ALT (0-55) Units/L Alkaline Phosphatase (38-126) Units/L Troponin I (0-0.03) ng/mL B-Natriuretic Peptide (0-100) pg/mL Serum Total Protein (6.0-8.3) g/dL Albumin (3.5-5.0) g/dL Globulin (2.4-3.5) g/dL Albumin/Globulin Ratio (1.1-2.2) Urine Color (Yellow) Urine Clarity (Clear) Urine pH (5.0-8.0) pH Units Ur Specific Carmi (1.010-1.025) Urine Protein (Neg-Trace) mg/dL Urine Glucose (UA) (Normal) mg/dL Urine Ketones (Negative) mg/dL Urine Blood (Negative) Urine Nitrite (Negative) Urine Bilirubin (Negative) Urine Urobilinogen (Normal) mg/dL Ur Leukocyte Esterase (Negative) Ur Culture Indicated? (NO) Urine Opiates Screen Negative (Ggmdpv=796) ng/mL Ur Barbiturates Screen Negative (Ucyzgk=262) ng/mL Ur Phencyclidine Scrn Negative (Cutoff=25) ng/mL Ur Amphetamines Screen Negative (Wvofnr=7003) ng/mL U Benzodiazepines Scrn Negative (Jqphfq=290) ng/mL Urine Cocaine Screen Negative (Cutoff= 300) ng/mL U Marijuana (THC) Screen Negative (Cutoff = 50) ng/mL Ethyl Alcohol (0-10) mg/dL - Diagnostic Studies Chest x-ray Additional comments: Chest X-Ray 09/07/16 14:20 IMPRESSION: Mild multifocal right-sided pneumonia. D/ / Mikhail Molina MD / Mikhail Molina MD Interpreting Provider: Mikhail Molina MD <[email or web address] - Last Filed: 09/07/16 18:38> Date of Encounter: 09/07/16 Time of Encounter: 17:00 Internal Medicine - H&P: HPI History of present illness: Mr. Marx is a 60 year old male All Systems PM: A 10-system review of systems was performed and is negative for pertinent findings except as documented above in the HPI. - Constitutional Vitals: Temp Pulse Resp BP Pulse Ox 100.3 F H 126 18 123/75 92 09/07/16 17:03 09/07/16 17:03 09/07/16 17:03 09/07/16 17:03 09/07/16 17:03 Internal Med - H&P Results - Labs CBC & Chem 7: 09/07/16 14:29 09/07/16 14:29 - Attending Attestation I examined this patient and my medical decision-making was reviewed with the nurse practitioner. I agree with the documented history of present illness, review of systems, past medical, surgical social and family histories and examination findings, disposition and treatment plan as described above except to any changes set forth below. 60-year-old male patient with history of alcohol abuse was brought into the ER with coughing, confusion, chest pain still and alcohol intoxication. Patient was given Ativan in the ER and is somnolent but improving. He knows that he is in [place]. He denies any chest pain at this time. On arrival to the ER, he was tachycardic tachypneic and was saturating 89% on room air. Further evaluation showed that he had a right middle and lower lobe consolidation along with an elevated WBC count. He also has an elevated blood alcohol level. On examination, he has coarse breath sounds in his right lung, he is tachycardic. He is in sinus tachycardia. Lactate is normal. Patient sepsis due to aspiration pneumonia/community-acquired pneumonia: We will treat with IV antibiotics, IV fluids. Monitor vital signs closely. O2 supplementation as needed. Place patient on Levaquin and Zosyn. Sinus tachycardia likely due to alcohol intoxication and sepsis. Will check thyroid profile. Chest pain: Present on arrival. Resolved now. Will and troponins. Alcohol intoxication with delirium: At high risk for alcohol withdrawal. We will monitor for signs of withdrawal. Treat accordingly. Treated supportive care including vitamin B complex, folic acid, thiamine. refuge worker consult. This document has been at least partially created by [employer] recognition technology by Dr. Monroy. Errors in grammar, wording or other phrases may exist. If errors are found after the documentation is signed, they will be addressed individually in the addendum section of this document when appropriate.
[2016-09-07] MEDS: 0.9 % Sodium Chloride 1,000 ML IVC SCH (18:13)
[2016-09-07] MEDS: Piperacillin/Tazobactam 3.375 GM in D5% in Water (Mini-Bag+) 100 ML IVPB SCH (18:14)
[2016-09-07] MEDS: Nicotine 21 MG PATCH.TD24 TD SCH (18:50)
[2016-09-07] MEDS: Ipratropium/Albuterol Neb 3 ML IH SCH ×2 (19:32→22:07)
[2016-09-07] MEDS: Thiamine (B-1) 100 MG, Folic Acid 1 MG, MVI, adult with vitamin K 10 ML in 0.9 % Sodi... IVPB SCH (19:50)
[2016-09-08] MEDS ORDERED: Piperacillin/Tazobactam 3.375 GM in D5% in Water (Mini-Bag+) 100 ML IVPB SCH
[2016-09-08] MEDS: Piperacillin/Tazobactam 3.375 GM in D5% in Water (Mini-Bag+) 100 ML IVPB SCH ×3 (01:04→16:28)
[2016-09-08] MEDS: 0.9 % Sodium Chloride 1,000 ML IVC SCH ×3 (01:05→16:27)
[2016-09-08] MEDS: Ipratropium/Albuterol Neb 3 ML IH SCH ×4 (04:37→22:22)
[2016-09-08 05:29] LABS: Basophils # 0.1 K/mcL (0.0-0.2); Basophils % 0.5 %; Eosinophils % 0.2 %; Hematocrit 41.9 % (37.5-50.1); Immature Granulocytes % 0.8 % (0-4); Lymphocytes % 16.4 %; Mean Corpuscular HGB Conc 34.1 g/dL (31.6-35.5); Mean Corpuscular Hemoglobin 30.2 pg (28.0-33.3); Mean Corpuscular Volume 88.6 fL (83.0-100.0); Mean Platelet Volume 10.3 fL (9.4-12.4); Monocytes # 1.4 K/mcL (0.0-1.3); Monocytes % 7.5 %; Neutrophils # 13.8 K/mcL (1.6-8.9); Platelet Count 165 K/mcL (140-400); Red Blood Count 4.73 M/mcL (4.19-5.50); Segmented Neutrophils % 74.6 %
[2016-09-08 05:30] LABS: Hemoglobin 14.3 g/dL (12.9-16.9)
[2016-09-08 05:50] LABS: BUN/Creatinine Ratio 11 (6-26); Blood Urea Nitrogen 8 mg/dL (8-26); Carbon Dioxide 26 mEq/L (19-29); Chloride 101 mEq/L (98-109); Glucose 110 mg/dL (70-99); Osmolality,Calculated 279 (280-300); Potassium 3.4 mEq/L (3.5-4.5); Sodium 135 mEq/L (136-145); eGFR For African Americans > 60 (> 60); eGFR For Non-African Americans > 60 (> 60)
[2016-09-08] MEDS: *HR* Enoxaparin 40 MG/0.4 ML SYRINGE SQ SCH (06:45)
--- NOTE | 2016-09-08 07:56 | Internal Med Progress Note ---
Date of Encounter: 09/08/16 Time of Encounter: 07:53 - Assessment and plan (1) Hypokalemia Current Visit: Yes Status: Acute Assessment and plan: will replace (2) Community acquired bacterial pneumonia Current Visit: Yes Status: Acute Assessment and plan: possible aspiration pneumonia given alcoholism started on zosyn and zosyn (3) Altered mental status Current Visit: Yes Status: Acute Assessment and plan: clinically better was intoxicated Qualifiers: Altered mental status type: delirium Qualified Code(s): R41.0 - Disorientation, unspecified (4) Acute alcoholic intoxication with delirium Current Visit: Yes Status: Chronic Assessment and plan: patient alcoholic and started on protocol consult social service (5) Smoker Current Visit: Yes Status: Acute Assessment and plan: chronic poly sobstance abuse (6) Chest pain Current Visit: Yes Status: Acute Assessment and plan: chest pain due to coughing troponin negative Qualifiers: Chest pain type: unspecified Qualified Code(s): R07.9 - Chest pain, unspecified (7) Tachycardia Current Visit: Yes Status: Acute Assessment and plan: due to dehydration and acute illness now in normal sinus - Subjective Interval history: Patient with history of alcoholism he drinks since he was at age 11 patient was admitted from the ER due to coughing , confusion and stumbling brought in by coworkers to the emergency room also having some chest pain , cough , shortness of breath chest x-ray shows multilobar pneumonia his alcohol level was 257 initially was agitated and confused this morning he is awake i and well oriented . he no longer confused though he is shaking. He is already on alcohol withdrawal protocol. - Constitutional Vitals: Temp Pulse Resp BP Pulse Ox 97.6 F 91 18 141/93 95 09/08/16 07:23 09/08/16 07:23 09/08/16 07:23 09/08/16 07:23 09/08/16 07:23 General appearance: Present: A&O X 1, disheveled - Eye Eye exam: Present: PERRL, conjuntiva pink, sclera anicteric Pupils: Present: PERRL - Neck Neck exam general surgery: Present: supple, trachea midline. Absent: lymphadenopathy - Respiratory Respiratory exam: Present: rhonchi - Cardiovascular Cardiovascular exam: Present: RRR, +S1, +S2. Absent: diastolic murmur, gallop, rubs, systolic murmur - GI/Abdominal GI/Abdominal exam: Present: normal bowel sounds, soft, no peritoneal signs. Absent: distended, tenderness - Extremities Exam Extremities exam: Present: warm, radial pulses palpable and symetrical. Absent : calf tenderness, cyanotic, pedal edema Internal Medicine: Result - Labs CBC & Chem 7: 09/08/16 04:49 09/08/16 04:49 Labs: Short CBC 09/08/16 Range/Units 04:49 WBC 18.5 H (4.3-11.1) K/mcL Hgb 14.3 D (12.9-16.9) g/dL Hct 41.9 (37.5-50.1) % Plt Count 165 (140-400) K/mcL Neutrophils # 13.8 H (1.6-8.9) K/mcL BMP 09/08/16 04:49 Sodium 135 L Potassium 3.4 L Chloride 101 Carbon Dioxide 26 BUN 8 Creatinine 0.70 L Glucose 110 H Calcium 8.0 L Cardiac Enzymes 09/08/16 Range/Units 04:49 Troponin I 0.02 (0-0.03) ng/mL - ABG Interpretation ABG results: PT/INR, D-dimer PT 11.4 Seconds (9.4-12.1) 09/07/16 14:29 D-Dimer 534 ng/mLFEU (0-500) H 09/07/16 14:29 - VTE Documentation of Mechanical Device: Graduated compression elastic hosiery Consult Discharge Plan - Plan Referrals: NO,PCP [Primary Care Provider] -
[2016-09-08] MEDS ORDERED: Potassium Chloride 40 MEQ, Lidocaine 1% 2 ML in D5% in Water 500 ML IVPB ONE (08:03)
[2016-09-08] MEDS: Nicotine 21 MG PATCH.TD24 TD SCH (09:11)
[2016-09-08] MEDS: Levofloxacin 750 MG/150 ML 750 MG/150 ML BAG IVPB SCH (09:34)
[2016-09-08] MEDS: Thiamine (B-1) 100 MG, Folic Acid 1 MG, MVI, adult with vitamin K 10 ML in 0.9 % Sodi... IVPB SCH (17:24)
[2016-09-09] MEDS ORDERED: Piperacillin/Tazobactam 3.375 GM VIAL IVPB ONE (00:06)
[2016-09-09] MEDS: 0.9 % Sodium Chloride 1,000 ML IVC SCH ×2 (00:08→07:39)
[2016-09-09] MEDS: Piperacillin/Tazobactam 3.375 GM in D5% in Water (Mini-Bag+) 100 ML IVPB SCH ×4 (00:17→23:56)
[2016-09-09] MEDS: Ipratropium/Albuterol Neb 3 ML IH SCH ×4 (05:05→22:48)
[2016-09-09 06:02] LABS: Hematocrit 37.9 % (37.5-50.1); Mean Corpuscular HGB Conc 33.2 g/dL (31.6-35.5); Mean Corpuscular Hemoglobin 29.7 pg (28.0-33.3); Mean Corpuscular Volume 89.4 fL (83.0-100.0); Mean Platelet Volume 9.9 fL (9.4-12.4); Platelet Count 128 K/mcL (140-400); Red Blood Count 4.24 M/mcL (4.19-5.50); Red Cell Distribution Width 12.6 % (11.5-14.5)
[2016-09-09 06:03] LABS: BUN/Creatinine Ratio 11 (6-26); Carbon Dioxide 16 mEq/L (19-29); Chloride 114 mEq/L (98-109); Glucose 89 mg/dL (70-99); Hemoglobin 12.6 g/dL (12.9-16.9); Osmolality,Calculated 283 (280-300); Potassium 2.7 mEq/L (3.5-4.5); Sodium 138 mEq/L (136-145); eGFR For African Americans > 60 (> 60); eGFR For Non-African Americans > 60 (> 60)
[2016-09-09 06:08] LABS: Blood Urea Nitrogen 5 mg/dL (8-26); Calcium 6.5 mg/dL (8.6-10.8)
[2016-09-09] MEDS: *HR* Enoxaparin 40 MG/0.4 ML SYRINGE SQ SCH (06:33)
[2016-09-09] MEDS: Nicotine 21 MG PATCH.TD24 TD SCH (08:31)
[2016-09-09] MEDS: Levofloxacin 750 MG/150 ML 750 MG/150 ML BAG IVPB SCH (08:32)
[2016-09-09] MEDS ORDERED: Magnesium Sulfate 4 GM in D5% in Water 100 ML IVPB ONE (12:54)
[2016-09-09] MEDS ORDERED: Potassium Chloride 40 MEQ, Lidocaine 1% 2 ML in D5% in Water 500 ML IVPB ONE (12:55)
--- NOTE | 2016-09-09 12:59 | Internal Med Progress Note ---
Date of Encounter: 09/09/16 Time of Encounter: 12:57 - Assessment and plan (1) Hypokalemia Current Visit: Yes Status: Acute Assessment and plan: severe hypokalemia will give 40meq po and 40 meq iv and stop iv fluid, replace magnessium as well (2) Community acquired bacterial pneumonia Current Visit: Yes Status: Acute Assessment and plan: clinically much better wbc down to normal (3) Altered mental status Current Visit: Yes Status: Acute Assessment and plan: resolved no longer confused Qualifiers: Altered mental status type: delirium Qualified Code(s): R41.0 - Disorientation, unspecified (4) Acute alcoholic intoxication with delirium Current Visit: Yes Status: Chronic Assessment and plan: no withdrawal syndrome (5) Smoker Current Visit: Yes Status: Chronic Assessment and plan: chronic (6) Chest pain Current Visit: Yes Status: Acute Assessment and plan: resolved ruled out for mi Qualifiers: Chest pain type: unspecified Qualified Code(s): R07.9 - Chest pain, unspecified (7) Tachycardia Current Visit: Yes Status: Acute Assessment and plan: sinus due to dehydration - Subjective Interval history: Patient with history of alcoholism he drinks since he was at age 11 patient was admitted from the ER due to coughing , confusion and stumbling brought in by coworkers to the emergency room also having some chest pain , cough , shortness of breath chest x-ray shows multilobar pneumonia his alcohol level was 257 initially was agitated and confused this morning he is awake i and well oriented . he no longer confused though he is shaking. He is already on alcohol withdrawal protocol. today feels much better friend sitting at bedside wanting to go home .. discussed with him its not safe to be discharged very low potassium and mag and aspiration pneumonia - Constitutional Vitals: Temp Pulse Resp BP Pulse Ox 97.6 F 108 18 166/73 97 09/09/16 11:01 09/09/16 11:59 09/09/16 11:12 09/09/16 11:59 09/09/16 11:12 General appearance: Present: A&O X 1, disheveled - Neck Neck exam general surgery: Present: supple, trachea midline. Absent: lymphadenopathy - Respiratory Respiratory exam: Present: decreased breath sounds, rhonchi - Cardiovascular Cardiovascular exam: Present: RRR, +S1, +S2. Absent: diastolic murmur, gallop, rubs, systolic murmur - GI/Abdominal GI/Abdominal exam: Present: normal bowel sounds, soft, no peritoneal signs. Absent: distended, tenderness - Extremities Exam Extremities exam: Present: warm, radial pulses palpable and symetrical. Absent : calf tenderness, cyanotic, pedal edema - Neurological Exam Neurological exam: Present: CN II-XII intact, oriented X3, no focal deficits. Absent: pronater drift, facial droop, speech deficit Internal Medicine: Result - Labs CBC & Chem 7: 09/09/16 05:33 09/09/16 05:33 Labs: Short CBC 09/09/16 Range/Units 05:33 WBC 8.8 D (4.3-11.1) K/mcL Hgb 12.6 L D (12.9-16.9) g/dL Hct 37.9 (37.5-50.1) % Plt Count 128 L (140-400) K/mcL BMP 09/09/16 05:33 Sodium 138 Potassium 2.7 L Chloride 114 H Carbon Dioxide 16 L BUN 5 L Creatinine 0.46 L Glucose 89 Calcium 6.5 L D - ABG Interpretation ABG results: PT/INR, D-dimer PT 11.4 Seconds (9.4-12.1) 09/07/16 14:29 D-Dimer 534 ng/mLFEU (0-500) H 09/07/16 14:29 - VTE Documentation of Mechanical Device: Graduated compression elastic hosiery Consult Discharge Plan - Plan Referrals: NO,PCP [Primary Care Provider] -
--- NOTE | 2016-09-09 17:39 | Electrocardiograph Report ---
[address] [address] Test Date: 2016-09-07 Pat Name: Paul Marx Department: 104 Room: 2A24 Gender: M [employer] Instructor: : [id number] Requested By: Nico Meyer Order Number: [id number] Reading MD: Cherelle Lisa Measurements Intervals [place] Rate: 139 P: 66 OK: 143 QRS: 44 QRSD: 97 T: 52 QT: 258 QTc: 339 Interpretive Statements SINUS TACHYCARDIA ABNORMAL RHYTHM ECG Electronically Signed On 09-09-2016 17:37:43 EDT by Cherelle Lisa
[2016-09-09] MEDS: Thiamine (B-1) 100 MG, Folic Acid 1 MG, MVI, adult with vitamin K 10 ML in 0.9 % Sodi... IVPB SCH (18:42)
[2016-09-10 04:01] LABS: BUN/Creatinine Ratio 9 (6-26); Blood Urea Nitrogen 6 mg/dL (8-26); Calcium 8.7 mg/dL (8.6-10.8); Carbon Dioxide 20 mEq/L (19-29); Chloride 106 mEq/L (98-109); Glucose 115 mg/dL (70-99); Magnesium 1.8 mg/dL (1.6-2.6); Osmolality,Calculated 275 (280-300); Potassium 3.8 mEq/L (3.5-4.5); Sodium 133 mEq/L (136-145); eGFR For African Americans > 60 (> 60); eGFR For Non-African Americans > 60 (> 60)
[2016-09-10] MEDS: Ipratropium/Albuterol Neb 3 ML IH SCH ×2 (04:51→10:52)
[2016-09-10] MEDS: *HR* Enoxaparin 40 MG/0.4 ML SYRINGE SQ SCH (05:35)
[2016-09-10] MEDS: Piperacillin/Tazobactam 3.375 GM in D5% in Water (Mini-Bag+) 100 ML IVPB SCH (09:42)
[2016-09-10] MEDS: Nicotine 21 MG PATCH.TD24 TD SCH (09:43)
[2016-09-10 11:18] VITALS: BP 153/101
[2016-09-10] MEDS ORDERED: *HR* Metoprolol 5 MG/5 ML VIAL IVP ONE (11:49)
--- NOTE | 2016-09-10 13:13 | Discharge Summary ---
Date of Encounter: 09/10/16 Time of Encounter: 13:10 - Discharge Diagnosis (1) Community acquired bacterial pneumonia Priority: Primary Status: Acute (2) Altered mental status Priority: Primary Status: Resolved Qualifiers: Altered mental status type: delirium Qualified Code(s): R41.0 - Disorientation, unspecified (3) Acute alcoholic intoxication with delirium Priority: Primary Status: Chronic (4) Smoker Priority: Secondary Status: Chronic Comments: Extensive smoking cessation counseling provided patient reports that he is thinking about quitting and when ready will buy nicotine patch over the counter (5) DVT prophylaxis Priority: Secondary Status: Acute - Discharge Medications Prescriptions: Folic Acid 1 mg PO DAILY #30 tablet Thiamine (B-1) [Vitamin B-1] 100 mg PO DAILY #30 tablet Home Medications: Folic Acid 1 mg PO DAILY #30 tablet 09/10/16 [Rx] Thiamine (B-1) [Vitamin B-1] 100 mg PO DAILY #30 tablet 09/10/16 [Rx] Allergies/Adverse Reactions: Allergies Unable to Assess Allergy (Verified 09/08/16 08:21) patient states NKA. Date of admission: 09/07/16 16:12 Primary care physician: PCP MARJAN Discharging clinician: Rhiannon Boykin Anticipated date of discharge: 09/10/16 - Patient Status Disposition: Home, Self-Care Condition: Good Functional capacity at discharge: independent ambulation Overall status at discharge: patient is back to baseline - Discharge Instructions Follow Up With: MARJAN,PCP [Primary Care Provider] - (Pt is from [place], [place]) Additional Instructions: Please follow up with your primary care physician after your discharge from the hospital. Please closely monitor your blood pressure at home and keep a log of these numbers. Take this with you to your primary care physician. Folic acid and thiamine supplements have been added to your home medications. Please take these medications as prescribed. Alcohol cessation is highly advised. - Diet and Activity Activity: resume usual activities as tolerated Diet: low salt diet Hospital course: Mr. Marx is a 60 year old male with no known medical history who was admitted for altered mental status secondary to alcohol intoxication. Upon arrival patient was found to have pneumonia and was started on IV antibiotics. He was also started on IV fluids and placed on CIWA protocol. Patient responded appropriately to therapy. He reports it being from [place] and uses urgent care as his primary care physician. bibliographic services specialist were provided and patient states he will seek appropriate medical treatment and establish primary care physician after his discharge once he returns to [place]. Patient plans on returning to [place] immediately after his discharge. Patient has finished 5 days course of antibiotics for his pneumonia. He is currently asymptomatic and in no acute distress. He is hemodynamically stable and will be discharged home. He refused any follow-up appointment set up after discharge. States he will seek medical care himself in [place]. - Time Spent with Patient Total time spent providing and/or coordinating discharge services: Less than 30 minutes - Constitutional Vitals: Temp Pulse Resp BP Pulse Ox 97.7 F 84 17 153/101 94 09/10/16 10:26 09/10/16 10:52 09/10/16 10:26 09/10/16 10:52 09/10/16 10:26 General appearance: Present: A&O X 3, no acute distress, answers questions appropriately - Head Head exam: Present: atraumatic, normocephalic - Eye Eye exam: Present: normal appearance, conjuntiva pink, sclera anicteric - Respiratory Respiratory exam: Present: CTAB. Absent: accessory muscle use, rales, rhonchi, wheezes - Cardiovascular Cardiovascular exam: Present: RRR, +S1, +S2. Absent: diastolic murmur, gallop, rubs, systolic murmur - GI/Abdominal GI/Abdominal exam: Present: normal bowel sounds, soft, no peritoneal signs. Absent: distended, tenderness - Extremities Exam Extremities exam: Present: warm, radial pulses palpable and symetrical. Absent : calf tenderness, cyanotic, pedal edema - Neurological Exam Neurological exam: Present: alert, oriented X3 - Psychiatric Psychiatric exam: Present: normal affect, normal mood - VTE Documentation of Mechanical Device: Graduated compression elastic hosiery
[2016-09-10] MEDS: Levofloxacin 750 MG/150 ML 750 MG/150 ML BAG IVPB SCH (14:12)
== END 2016-09-10 14:15 | disposition home or self-care (01) | DRG 871 ==
LOC: EMEROO 14:06 → 2ANU 14:06
PROVIDERS: ADMIT Internal Medicine; ATTEND Internal Medicine